=== PATIENT | male | born 1970 | race American Indian/Alaskan Native ===

== ENCOUNTER 2018-07-06 13:51 | Emergency (ER) | payer MEDICARE, OTHER ==
[2018-07-06 14:32] VITALS: BP 118/91
[2018-07-06 15:01] LABS: ANION GAP 16.8; CHLORIDE,CL 102 mmol/L (101-111); SODIUM,NA 137 mmol/L (135-145)
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
[2018-07-06 17:29] LABS: ACETAMINOPHEN < 10 ug/mL
== END 2018-07-06 17:48 ==
LOC: DL.ED 13:51
DX: Z02.89 Encounter for other administrative examinations (principal); F17.210 Nicotine dependence, cigarettes, uncomplicated
CPT/HCPCS: 36415; 80053; 80305; 81001; 85025; 87086; 99284; G0480

== ENCOUNTER 2023-05-02 12:38 | Emergency (ER) | payer MEDICARE, OTHER ==
[2023-05-02] MEDS ORDERED: Naloxone 2 MG in Sodium Chloride 0.9% 500 ML IV SCH (12:45)
[2023-05-02] MEDS ORDERED: Sodium Chloride 0.9% 10 ML Syringe FLUSH PRN (12:52)
[2023-05-02] MEDS ORDERED: Thiamine 100 MG in Sodium Chloride 0.9% 100 ML IV ONE (12:54)
[2023-05-02] MEDS ORDERED: Sodium Chloride 0.9% 1,000 ML IV ONE ×2 (12:54→14:07)
[2023-05-02 13:10] LABS: HEMATOCRIT 44.2 % (40.0-54.0); HEMOGLOBIN 14.6 g/dL (14.0-18.0); MEAN CORPUSCULAR VOLUME 93.8 fL (80-100); PLATELET COUNT,PLT 261 10^3/uL (150-450); RED BLOOD CELL COUNT 4.71 10^6/uL (4.6-6.2); WHITE BLOOD CELL COUNT,WBC 10.3 10^3/uL (5.0-10.0)
[2023-05-02 13:11] LABS: BASOPHILS PERCENT AUTO 0.1 % (0.0-1.0); EOSINOPHILS PERCENT AUTO 2.1 % (1.0-3.0); LYMPHOCYTES PERCENT AUTO 12.8 % (20.5-50.1); MONOCYTES PERCENT AUTO 4.1 % (2-8); NEUTROPHILS PERCENT AUTO 80.9 % (42.2-75.2)
[2023-05-02 13:25] LABS: ALBUMIN 2.9 g/dL (3.4-5.0); ANION GAP 10.8 mEq/L (7-13); BILIRUBIN TOTAL 0.4 mg/dL (0.2-1.0); BUN/CREATININE RATIO 10.2 (No establ ref range); CREATININE 0.98 mg/dL (0.70-1.30); EST CRCL DRUG DOSING (CG) 109.48 mL/min; POTASSIUM,K 3.8 mmol/L (3.5-5.1); PROTEIN TOTAL,TP 7.8 g/dL (6.4-8.2)
[2023-05-02 14:15] LABS: A/G RATIO 0.59
[2023-05-02 14:27] VITALS: BP 118/70; PULSE 90
[2023-05-02 14:43] LABS: BAND PERCENT MAN 2 %; EOSINOPHILS PERCENT MAN 5 % (1-3); LYMPHOCYTES PERCENT MAN 14 % (20-50); MONOCYTES PERCENT MAN 4 % (2-8); SEG NEUTROPHILS PERCENT MAN 75 % (42-75)
[2023-05-02 15:46] LABS: APPEARANCE,URINE CLEAR (CLEAR); BILIRUBIN,URINE NEGATIVE (NEGATIVE); COLOR,URINE YELLOW (YELLOW); GLUCOSE,URINE NEGATIVE (NEGATIVE); KETONES,URINE NEGATIVE (NEGATIVE); LEUKOCYTE ESTERASE,URINE TRACE (NEGATIVE); NITRITE,URINE NEGATIVE (NEGATIVE); OCCULT BLOOD,URINE TRACE-INTACT (NEGATIVE); PH,URINE 6.5 (5.0-9.0); PROTEIN,URINE 30 (NEGATIVE); UROBILINOGEN,URINE 0.2 mg/dL (0.2-1.0)
[2023-05-02 15:49] LABS: AMPHETAMINES,URINE POSITIVE (NEGATIVE); BARBITURATES,URINE NEGATIVE (NEGATIVE); BENZODIAZEPINE,URINE NEGATIVE (NEGATIVE); MDMA (ECSTASY), URINE POSITIVE (NEGATIVE); METHADONE,URINE NEGATIVE (NEGATIVE); METHAMPHETAMINES,URINE POSITIVE (NEGATIVE); OPIATES,URINE NEGATIVE (NEGATIVE); PHENCYCLIDINE,URINE NEGATIVE (NEGATIVE); TCA,URINE NEGATIVE (NEGATIVE)
[2023-05-02 15:50] LABS: OXYCODONE,URINE NEGATIVE (NEGATIVE)
[2023-05-02 16:07] LABS: EPITHELIAL CELLS,URINE MODERATE /HPF (NOT SEEN); HYALINE CASTS,URINE FEW
[2023-05-02 16:08] LABS: BACTERIA,URINE RARE /HPF (0-FEW/HPF); RBC,URINE 0-5 /HPF (0-5); TRICHOMONAS,URINE PRESENT /HPF (NOT SEEN); WBC,URINE 0-5 /HPF (0-5/HPF)
[2023-05-02 16:09] LABS: AMORPHOUS SEDIMENT,URINE FEW /HPF (NOT SEEN)
== END 2023-05-02 16:39 | disposition home or self-care (01) ==
LOC: DL.ED 12:38
DX: T40.411A Poisoning by fentanyl or fentanyl analogs, accidental (unintentional), initial encounter (principal); F19.10 Other psychoactive substance abuse, uncomplicated; T43.651A Poisoning by methamphetamines accidental (unintentional), initial encounter; E66.9 Obesity, unspecified; Z68.34 Body mass index [BMI] 34.0-34.9, adult
CPT/HCPCS: 36415; 80053; 80305; 80307; 81001; 85025; 87086; 93005; 96361; 96365; 96366; 96368; 99284; J2310; J3411; J3490; J7030; J7040

== ENCOUNTER 2023-08-30 18:54 | Emergency (ER) | payer OTHER ==
[2023-08-30] MEDS: Sodium Chloride 0.9% 10 ML Syringe FLUSH PRN (19:55)
[2023-08-30 19:59] LABS: HEMATOCRIT 48.4 % (40.0-54.0); HEMOGLOBIN 17.4 g/dL (14.0-18.0); MEAN CORPUSCULAR HEMOGLOBIN 29.9 pg (27.0-34.0); MEAN CORPUSCULAR VOLUME 83.2 fL (80-100); PLATELET COUNT,PLT 317 10^3/uL (150-450); RED BLOOD CELL COUNT 5.82 10^6/uL (4.6-6.2); WHITE BLOOD CELL COUNT,WBC 8.8 10^3/uL (5.0-10.0)
[2023-08-30 20:03] LABS: BASOPHILS PERCENT AUTO 0.1 % (0.0-1.0); EOSINOPHILS PERCENT AUTO 0.2 % (1.0-3.0); MONOCYTES PERCENT AUTO 8.9 % (2-8); NEUTROPHILS PERCENT AUTO 77.8 % (42.2-75.2)
[2023-08-30 20:20] LABS: ALANINE AMINOTRANSFERASE,ALT 56 U/L (16-63); ALBUMIN 2.4 g/dL (3.4-5.0); ALKALINE PHOSPHATASE 124 U/L (46-116); ANION GAP 16.1 mEq/L (7-13); ASPARTATE AMNIOTRANSFERASE,AST 52 U/L (15-37); BILIRUBIN TOTAL 0.5 mg/dL (0.2-1.0); BLOOD UREA NITROGEN,BUN 19 mg/dL (7-18); BUN/CREATININE RATIO 15.1 (No establ ref range); CALCIUM 7.9 mg/dL (8.5-10.1); CARBON DIOXIDE,CO2 18 mmol/L (21-32); CHLORIDE,CL 100 mmol/L (98-107); CREATININE 1.26 mg/dL (0.70-1.30); GLUCOSE RANDOM 143 mg/dL (70-99); LIPASE 20 U/L (16-77); MAGNESIUM 1.8 mg/dL (1.8-2.4); POTASSIUM,K 3.1 mmol/L (3.5-5.1); PROTEIN TOTAL,TP 8.5 g/dL (6.4-8.2); SODIUM,NA 131 mmol/L (136-145)
[2023-08-30 20:22] LABS: A/G RATIO 0.39; ESTIMATED GFR 69 mL/min (>=60)
[2023-08-30 20:25] LABS: BAND PERCENT MAN 2 %; LYMPHOCYTES % ATYPICAL MANUAL 3 %; LYMPHOCYTES PERCENT MAN 11 % (20-50); MONOCYTES PERCENT MAN 7 % (2-8); SEG NEUTROPHILS PERCENT MAN 77 % (42-75)
[2023-08-30] MEDS: Iopamidol 612 MG/ML 100 ML Bottle IVPUSH ONE (20:39)
[2023-08-30] MEDS: Potassium Chloride 10 MEQ Tab.ER PO ONE (21:04)
[2023-08-30] MEDS: Sodium Chloride 0.9% 1,000 ML IV ONE (21:05)
[2023-08-30] MEDS ORDERED: Potassium Chloride 10 MEQ Tab.ER ONE (21:08)
[2023-08-30 21:40] LABS: APPEARANCE,URINE CLEAR (CLEAR); BILIRUBIN,URINE NEGATIVE (NEGATIVE); COLOR,URINE YELLOW (YELLOW); GLUCOSE,URINE NEGATIVE (NEGATIVE); KETONES,URINE NEGATIVE (NEGATIVE); LEUKOCYTE ESTERASE,URINE NEGATIVE (NEGATIVE); NITRITE,URINE NEGATIVE (NEGATIVE); OCCULT BLOOD,URINE SMALL (NEGATIVE); PH,URINE 6.5 (5.0-9.0); PROTEIN,URINE 100 (NEGATIVE); UROBILINOGEN,URINE 0.2 mg/dL (0.2-1.0)
[2023-08-30] MEDS: Levofloxacin 500 MG Tab PO ONE (22:01)
[2023-08-30] MEDS: metroNIDAZOLE 250 MG Tab PO ONE (22:01)
[2023-08-30 22:10] VITALS: BP 97/68; PULSE 104
[2023-08-30 22:22] LABS: AMORPHOUS SEDIMENT,URINE FEW /HPF (NOT SEEN); BACTERIA,URINE RARE /HPF (0-FEW/HPF); EPITHELIAL CELLS,URINE RARE /HPF (NOT SEEN); MUCUS,URINE RARE /LPF (NOT SEEN); RBC,URINE 0-5 /HPF (0-5); WBC,URINE 0-5 /HPF (0-5/HPF)
== END 2023-08-30 22:19 | disposition home or self-care (01) ==
LOC: DL.ED 18:54
DX: K52.9 Noninfective gastroenteritis and colitis, unspecified (principal); E11.65 Type 2 diabetes mellitus with hyperglycemia; F17.210 Nicotine dependence, cigarettes, uncomplicated
CPT/HCPCS: 36415; 74177; 80053; 81001; 82947; 83690; 83735; 84484; 85025; 93005; 96360; 99284; A9270; J7030; Q9967; J3490

== ENCOUNTER 2024-09-09 18:46 | Emergency (ER) | payer MEDICARE, OTHER ==
[2024-09-09] MEDS ORDERED: Ondansetron 4 MG/2 ML SDV IV ONE (18:47)
[2024-09-09] MEDS ORDERED: Ketamine 500 mg/10 ML MDV IV ONE (18:47)
[2024-09-09] MEDS ORDERED: dexmedeTOMIDine HCl 200 MCG/2 ML SDV IV ONE (18:47)
[2024-09-09] MEDS ORDERED: Sodium Chloride 0.9% 1,000 ML IV ONE (18:47)
[2024-09-09] MEDS ORDERED: fentaNYL 100 MCG/2 ML SDV IV ONE (18:47)
[2024-09-09] MEDS: Ondansetron 4 MG/2 ML SDV IVPUSH ONE (19:33)
[2024-09-09] MEDS: Ketorolac 30 MG/ML SDV IVPUSH ONE (19:33)
[2024-09-09] MEDS ORDERED: Ketamine 500 mg/10 ML MDV ONE (19:45)
[2024-09-09] MEDS ORDERED: fentaNYL 100 MCG/2 ML SDV ONE (19:45)
[2024-09-09] MEDS ORDERED: dexmedeTOMIDine HCl 200 MCG/2 ML SDV ONE (19:45)
[2024-09-10 21:15] VITALS: BP 148/94; PULSE 91
== END 2024-09-09 21:21 | disposition home or self-care (01) ==
LOC: DL.ED 18:46
DX: S43.024A Posterior dislocation of right humerus, initial encounter (principal); W22.8XXA Striking against or struck by other objects, initial encounter; Y93.89 Activity, other specified
CPT/HCPCS: 01620; 23650; 23655; 73020; 73030; 96374; 96375; 99152; 99153; 99283; J1885; J2405; J3010; J3490; J7030